=== PATIENT | male | born 1970 | race Caucasian/White ===

== ENCOUNTER → 2021-07-14 | Outpatient (CLI) | payer OTHER ==
[~2021-07-14] MED LIST: CHLORTHALIDONE25 MG PO; LISINOPRIL20 MG PO; [UNRECOGNIZED DRUG - REMARK]
== END ==
LOC: M.CT 10:53
PROVIDERS: ATTEND Nurse Practitioner Family
DX: Z13.6 Encounter for screening for cardiovascular disorders (principal); I25.10 Atherosclerotic heart disease of native coronary artery without angina pectoris